=== PATIENT | female | born 2000 | race Caucasian/White ===

== ENCOUNTER 2021-11-22 10:15 | Observation (INO) | payer OTHER, SELFPAY ==
--- NOTE | ~2021-11-22 | XR_ITS ---
XR chest 2V DATE: 11/22/2021 13:19 INDICATION: Increased venous pulsatility on the right upper quadrant ultrasound TECHNIQUE: AP and lateral views COMPARISON: None FINDINGS: Normal heart size. No hilar or mediastinal enlargement. No pulmonary infiltrate or consolid ation, pleural effusion or pulmonary vascular congestion or pneumothorax. IMPRESSION: No active cardiopulmonary disease Reviewed, dictated and finalized at location B.
--- NOTE | ~2021-11-22 | US_ITS ---
EXAMINATION: US abdomen limited DATE: 11/22/2021 12:31 INDICATION: Elevated liver function tests. Nausea and vomiting. TECHNIQUE: Multiple grayscale and Doppler ultrasound images of the abdomen were obtained. COMPARISON: None FINDINGS: The pancreatic head and body are normal in appearance. The pancreatic tail is not visualized. Visual ized proximal to mid abdominal aorta is normal. Liver has normal echogenicity and contour, with a smo oth surface. Focal hyperechoic hepatic steatosis along the ligamentum teres. No other hepatic lesions identified. No intrahepatic biliary duct dilation suspected. Portal venous flow was seen in the hepa topetal, normal direction. There is increased portal vein pulsatility which can be seen with tricuspi d regurgitation, right heart failure or cirrhosis. Visualized proximal inferior vena cava is normal. The gallbladder is normal in appearance. There is no cholelithiasis. The common bile duct measures 4 mm, which is normal. Sonographic Avina sign was reported as negative by the petroleum refining equipment operator. IMPRESSION: 1. Increased portal venous pulsatility which can be seen with tricuspid regurgitation, heart failure, other cause of elevated right heart pressures and cirrhosis although the liver appears normal with n o surface nodularity. Reviewed, dictated and finalized at location A. IMPRESSION: 1. Increased portal venous pulsatility which can be seen with tricuspid regurgi tation, heart failure, other cause of elevated right heart pressures and cirrho sis although the liver appears normal with no surface nodularity.
[2021-11-22 10:24] VITALS: BP 148/91; PULSE 71; RESP 19; TEMP 37; O2SAT 100
[2021-11-22 10:43] LABS: Basophils Absolute Auto 0.1 K/mm3 (0.0-0.1); Basophils Percent Auto 0.5 % (0.2-1.2); Eosinophils Percent Auto 0.1 % (0-4.4); Hematocrit 42.7 % (37.0-47.0); Hemoglobin 13.9 g/dL (12.0-15.0); Immature Granulocyte Absolute 0.05 K/mm3 (0.00-0.031); Immature Granulocyte Percent A 0.5 % (0-0.5); Lymphocytes Absolute Auto 2.87 K/mm3 (0.9-3.2); Lymphocytes Percent Auto 30.9 % (18.3-44.2); Mean Corpuscular HGB Conc 32.6 g/dl (32-36); Mean Corpuscular Hemoglobin 29.9 pg (26-34); Mean Corpuscular Volume 91.8 fl (80-100); Mean Platelet Volume 10.8 fl (7.4-10.4); Monocytes Percent Auto 10.7 % (2.6-8.5); Neutrophils Absolute Auto 5.3 K/mm3 (1.3-6.7); Neutrophils Percent Auto 57.3 % (45.5-73.1); Platelet Count Result 286 k/mm3 (150-375); Red Blood Count 4.65 M/mm3 (4.2-5.4); Red Cell Distribution Width 13.9 % (11.5-14.5); White Blood Count 9.3 K/mm3 (4.5-10.0)
[2021-11-22 10:53] LABS: Alanine Aminotransferase 54 U/L (6-35); Albumin Level 4.5 g/dL (3.5-5.1); Alkaline Phosphatase 104 U/L (38-126); Anion Gap 12 mmol/L (8-16); Aspartate Amino Transferase 74 U/L (14-36); Bilirubin,Total 0.4 mg/dL (0.2-1.3); Blood Urea Nitrogen 5 mg/dL (7-17); Calcium 9.1 mg/dL (8.4-10.2); Carbon Dioxide 23 mmol/L (22-30); Chloride 104 mmol/L (98-107); Estimated CRCL calculation 156 ml/min; Estimated Glomerular Filt Rate > 60; Glucose 103 mg/dL (65-110); Lipase 69 U/L (23-300); Potassium 3.2 mmol/L (3.4-5.0); Sodium 139 mmol/L (137-145)
[2021-11-22 10:57] LABS: Atypical Lymphocytes Present; Platelet Estimate Adequate (Adequate)
--- NOTE | 2021-11-22 11:25 | ED.NAVMDI ---
HPI - Nausea/Vomiting/Diarrhea General Chief complaint: Nausea/Vomiting/Diarrhea Stated complaint: dizzy & vomit x 5 days, [employer] [employer] Time Seen by Provider: 11/22/21 11:15 History of Present Illness HPI Narrative: Patient is a 20-year-old transgender female here for evaluation of nausea vomiting and diffuse abdominal pain x 10 days. Patient states that she has been feeling generally weak and fatigued in addition to the her chief complaints. she has been evaluated at [facility] for these complaints and has reportedly had a CT scan that was normal. Despite iv fluids and medications she continues to vomit at home and she presents today due to increased fatigue and nausea and vomiting. Additionally notes shortness of breath, but denies chest pain, leg swelling, fevers, chills, diarrhea or constipation. Denies alcohol use or marijuana use. Not currently on hormone replacement therapy. Related Data Home Medications Medication Instructions Recorded Confirmed amoxicillin 500 mg capsule cap 11/22/21 meclizine 25 mg tablet tablet 11/22/21 ondansetron HCl 4 mg tablet tablet 11/22/21 Allergies Allergy/AdvReac Type Severity Reaction Status Date / Time aspirin Allergy Unknown Verified 11/22/21 11:40 Review of Systems Review of Systems: Gen: Reports fatigue and dizziness Eyes: Denies eye pain or visual change ENT: Denies congestion Respiratory: Denies shortness of breath or cough CV: Denies chest pain or palpitations GI: Reports abdominal pain nausea, emesis. no diarrhea denies burning, urgency, frequency or hematuria Musculoskeletal: Denies back pain or muscle pain Neuro: Denies numbness, tingling, weakness or focal weakness Skin: Denies rash Except as documented, all other systems reviewed and negative [facility] Social History Social History Smoking status: Current every day smoker Alcohol intake: current Drinks per week: 4 Substance use: current Substance use type: marijuana Last use: 5-7 days Gender identity (if verbalized by the patient): Transgender Female Spiritual care concerns: No Exam Narrative: APPEARANCE: Uncomfortable appearing Head: Normocephalic and atraumatic. EYES: PERRLA/EOMI, conjunctivae clear NOSE: No nasal drainage EARS: External ear normal in appearance THROAT: Oropharynx is clear. Mucous membranes are moist. NECK: Supple. No adenopathy, no masses. RESPIRATORY: Airway patent, respirations nonlabored. Clear to auscultation bilaterally, no rales, rhonchi, wheezing. CARDIOVASCULAR: Regular rate and rhythm without murmurs, rubs, or gallops. ABDOMINAL: Tender to palpation in upper abdomen. Normoactive bowel sounds. Soft, nontender, nondistended. No rebound tenderness or guarding. MUSCULOSKELETAL: Extremities are warm and well-perfused. Moves all extremities well. No edema. NEURO: Normal speech. No focal neurologic deficits. SKIN: Skin is warm and dry. No rashes. PSYCHIATRIC: Normal affect/mood. Course Vital Signs Vital signs: Vital Signs Temperature 98.6 F 11/22/21 10:24 Pulse Rate 71 11/22/21 10:24 Respiratory Rate 19 11/22/21 10:24 Blood Pressure 148/91 H 11/22/21 10:24 Pulse Oximetry 100 11/22/21 10:24 Oxygen Delivery Room Air 11/22/21 10:24 Temperature 97.8 F 11/22/21 17:33 Pulse Rate 75 11/22/21 17:33 Respiratory Rate 20 11/22/21 17:33 Blood Pressure 121/98 H 11/22/21 17:33 Pulse Oximetry 100 11/22/21 17:33 Oxygen Delivery Room Air 11/22/21 10:24 MDM - Nausea/Vomiting/Diarrhea MDM Narrative Medical decision making narrative: 20-year-old female here for evaluation of weakness, fatigue, nausea, vomiting and generalized upper abdominal pain. Work-up significant for evidence of increased pulsatile venous flow to the liver, which may be suggestive of underlying heart failure or structural abnormality. Additionally, she appears dehydrated with 4+ ketones in the urine. Patient will likely need admission for echo an
[2021-11-22] MEDS: Please add drug allergy info to patient profile. 1 EACH XX (11:43)
[2021-11-22] MEDS: SODIUM CHLORIDE 0.9% IV 1,000 ML 999 ML IV CONT ×2 (11:45→14:35)
[2021-11-22] MEDS: ONDANSETRON INJ 4 MG/2 ML VIAL IV PUSH (11:45)
[2021-11-22 12:11] LABS: Add Urine Microscopic? YES; Appearance Urine Clear (Clear); Bilirubin Urine 2+ (Negative); Blood Urine 1+ (Negative); Color Urine Yellow (Yellow); Glucose Urine UA Negative (Negative); Ketones Urine 4+ mg/dL (Negative); Leukocyte Esterase Ur Negative LEU/UL (Negative); Nitrate Urine Negative (Negative); Protein Urine 2+ mg/dL (Negative); Specific Grav Ur >= 1.030 (1.001-1.035); Urobilinogen Urine 0.2 mg/dL (<2.0); pH Urine 5.5 (5.0-9.0)
[2021-11-22 12:15] LABS: Mucus Urine Heavy /lpf; Squamous Epithelial Cell Urine Rare /hpf (Few)
--- NOTE | 2021-11-22 13:23 | ECG_ITS ---
Measurements Intervals [place] Rate: 78 P: 62 CA: 148 QRS: 53 QRSD: 90 T: 17 QT: 405 QTc: 464 Interpretive Statements SINUS RHYTHM NORMAL ELECTROCARDIOGRAM NO PREVIOUS ECG AVAILABLE FOR COMPARISON Electronically Signed On 11-22-2021 15:56:46 CDT by Bobby Alexis M.D.
[2021-11-22 13:27] LABS: NT Pro B Type Natriuretic Pept 118 pg/mL (5-100)
[2021-11-22] MEDS: METOCLOPRAMIDE HCL INJ 10 MG/2 ML VIAL IV PUSH (14:36)
[2021-11-22] MEDS: diphenhydrAMINE HCl INJ 50 MG/ML VIAL 12.5 MG IV PUSH (14:40)
[2021-11-22 14:50] LABS: Monoscreen Negative (Negative); Negative Monotest Control Negative (Negative); Positive Monotest Control Positive (Positive)
[2021-11-22 16:05] LABS: INR 1.1
[2021-11-22 16:09] VITALS: BP 127/72; PULSE 74; RESP 18; O2SAT 99
[2021-11-22 16:43] LABS: SARS-CoV-2 RNA PCR Negative
[2021-11-22 16:47] LABS: Hepatitis B Surface Antigen Negative (Negative)
[2021-11-22 16:54] LABS: HAV RESULT Negative (Negative); Hepatitis B Core IgM Result Negative (Negative)
[2021-11-22] MEDS: SODIUM CHLORIDE 0.9% IV 1,000 ML 100 ML IV CONT (17:01)
[2021-11-22 17:04] LABS: Hepatitis C Virus Antibody Negative (Negative)
[2021-11-22] MEDS: KCL 20 MEQ/SW 100 ML 100 ML 50 MEQ IVPB (17:09)
[2021-11-22 17:33] VITALS: BP 121/98; PULSE 75; RESP 20; TEMP 36.6; O2SAT 100
--- NOTE | 2021-11-22 17:33 | PC.NURSE ---
This patient, Praneeth Lake, was admitted to Medical Room 249-01. Patient/family oriented to hospital policies and general routines including ID bracelet, bed and alarms, visiting hours, pain management, procedures, bathroom and other care routines, personal items, smoking policy, room service/diet, and visiting hours. Information on how to activate the Rapid Response Team has been discussed. Patient/Family are encouraged to report perceived risks to care and to ask questions if they do not understand what they are told or what they should do.
[2021-11-22] MEDS: PROCHLORPERAZINE EDISYLATE 10 MG/2 ML VIAL IV PUSH (18:30)
[2021-11-22] MEDS: PROMETHAZINE HCL 25 MG/ML AMPUL 12.5 MG IV PUSH (19:28)
--- NOTE | 2021-11-22 19:29 | PM.IMHP ---
H&P: HPI History of Present Illness Date/Time: Patient was placed observation status for expected length of stay less than 23 hours for management, will plan to re-evaluate tomorrow for improvement. 11/22/21 19:29 Chief Complaint: Nausea/vomiting Narrative: Ms. Lake is a 20-year-old nonbinary person who presented emergency room with complaints of nausea and vomiting. Patient states that she has had multiple episodes of nausea vomiting has been seen at [facility] in [place] as well as at [facility] and has been told that there is no etiology for this nausea vomiting. Patient states that she was diagnosed with pancreatitis approximately 1-2 years ago, but has been told since then there is no evidence of pancreatitis. Patient denies any fever chills. Patient states that she was recently diagnosed with strep throat and has not been able to take all of her antibiotics. Patient denies any fever or chills. Patient denies any sore throat. Patient denies any lymphadenopathy. Upon evaluation emergency room patient underwent abdominal ultrasound Increased portal venous pulsatility which can be seen with tricuspid regurgitation, heart failure, other cause of elevated right heart pressures and cirrhosis although the liver appears normal with no surface nodularity. Patient is not wanting to answer all questions at this time because she states that she is too nauseous, but has not vomited while in the emergency room. Patient is is not wanting to answer all questions at this time because she states she is nauseous and does not feel like answer questions. Review of Systems Review of Systems: A 12 point review of systems was completed patient all pertinent positive and negative per HPI the remainder are unremarkable. [facility] Past Medical History Medical History (Updated 11/22/21 @ 19:38 by Giselle Combs APRN) Nausea & vomiting Social History Social History Smoking status: Current every day smoker Alcohol intake: current Drinks per week: 4 Substance use: current Substance use type: marijuana Last use: 5-7 days Gender identity (if verbalized by the patient): Transgender Female Spiritual care concerns: No Meds Home Medications and Allergies Home Medications Medication Instructions Recorded Confirmed Type amoxicillin 500 mg capsule cap 11/22/21 History meclizine 25 mg tablet tablet 11/22/21 History ondansetron HCl 4 mg tablet tablet 11/22/21 History Allergies Allergy/AdvReac Type Severity Reaction Status Date / Time aspirin Allergy Unknown Verified 11/22/21 11:40 Vital Signs Vital Signs - 24 hr 11/22/21 10:24 11/22/21 16:09 11/22/21 17:33 Temperature 37.0 C 36.6 C Pulse Rate 71 74 75 Respiratory Rate 19 18 20 Blood Pressure 148/91 H 127/72 121/98 H Pulse Oximetry 100 99 100 Oxygen Delivery Room Air Exam Narrative: Constitutional: Patient is well-nourished in no acute distress. Patient is alert and oriented x3 HEENT: Moist mucous membranes. No scleral icterus. No lymphadenopathy. Neck: No carotid bruits noted no JVD noted Lungs: Lung sounds are clear to auscultation bilaterally. No accessory muscle use. No rhonchi, rales, or wheezes noted. Cardiovascular: Apical pulse is regular rate and rhythm. S1-S2 noted, no S3 or S4 noted. No gallops, murmurs, or rubs noted. Abdomen: Soft, round, and nontender. No palpable masses. Extremities: No edema. Nontender. Skin: No rashes or lesions. Warm and dry. Skin is intact. Neurological: No focal neurological deficits. Cranial nerves II-XII grossly intact. Psychiatric: Patient not being cooperative at this time and flailing in the bed stating that she is too nauseous to answer questions. H&P: Results Labs Labs: Short CBC 11/22/21 Range/Units 10:34 WBC 9.3 (4.5-10.0) K/mm3 Hgb 13.9 (12.0-15.0) g/dL Hct 42.7 (37.0-47.0) % Plt Count 286 (150-375) k/mm3 [facility] 11/22/21 10:34 Sodium 139 Pot
[2021-11-22 22:00] VITALS: BP 132/74; PULSE 75; RESP 22; TEMP 36.7; O2SAT 100
[2021-11-23] MEDS: PROMETHAZINE HCL 25 MG/ML AMPUL 12.5 MG IV PUSH ×2 (01:35→16:31)
[2021-11-23] MEDS: SODIUM CHLORIDE 0.9% IV 1,000 ML 100 ML IV CONT ×2 (03:02→19:57)
[2021-11-23 06:00] VITALS: BP 129/67; PULSE 65; RESP 21; TEMP 36.4; O2SAT 100
--- NOTE | 2021-11-23 06:00 | ECHO_ITS ---
Patient Info Name: Praneeth Lake Age: 20 years : 2000 Gender: Female Ht: 72 in Wt: 256 lbs BSA: 2.47 m2 HR: 63 bpm BP: 132 / 74 mmHg Heart Rhythm: Sinus Rhythm Technical Quality: Fair Exam Date: 11/23/2021 9:13 AM Exam Location: [facility] Pulmonary Patient Status: Outpatient Admit Date: 11/22/2021 Staff Ordering Physician: Megan Reyes PA-C [employer] Operator: Ale Fleming RDCS Attending Provider: Khadar Padgett MD Referring Physician: Amy MENDES; Exam Type: CA echo doppler color flow Study Info Indications - increased liver pulsatility Complete two-dimensional, color flow and Doppler transthoracic echocardiogram is performed. Summary 1. Complete two-dimensional, color flow and Doppler transthoracic echocardiogram is performed. 2. Normal left ventricular size and thickness with good contractility of all segments. Ejection fraction 65%. Normal diastolic function. 3. Left atrial chamber dimension is mildly enlarged. 4. Mild pulmonary hypertension, estimated pulmonary arterial systolic pressure is 44 mmHg. 5. Dilated inferior vena cava with >50% collapse upon inspiration consistent with elevated right atrial pressure, 15 mmHg. 6. Mildly increased velocity to of across the pulmonic valve, 1.5 m/sec, with no significant stenosis. 7. Normal sinus rhythm. Left Ventricle Left ventricular chamber dimension is normal. Left ventricular systolic function is normal, estimated at Empty. There is no increased left ventricular wall thickness. Left ventricular septal wall motion is normal. The left ventricular diastolic function is normal. Right Ventricle Right ventricular chamber dimension is normal. Right ventricular systolic function is normal. Left Atria Left atrial chamber dimension is mildly enlarged. Right Atria Right atrial chamber dimension is normal. Aortic Valve The aortic valve is trileaflet. There is no aortic valve sclerosis. There is no aortic valve stenosis. There is no aortic valve regurgitation. Pulmonic Valve The pulmonic valve is normal. There is no pulmonic valve stenosis. There is trace pulmonic regurgitation. Mitral Valve The mitral valve has normal leaflets. There is no mitral valve stenosis. There is trace mitral valve regurgitation. Tricuspid Valve The tricuspid valve leaflets are normal. There is no significant tricuspid valve stenosis. There is trace tricuspid valve regurgitation. Mild pulmonary hypertension, estimated pulmonary arterial systolic pressure is 44 mmHg. Pericardium/Pleural The pericardium appears normal. There is no pericardial effusion. Inferior Vena Cava Dilated inferior vena cava with >50% collapse upon inspiration consistent with elevated right atrial pressure, 15 mmHg. Aorta The aortic root size at the sinus of Valsalva is normal. The prox ascending aorta size is normal. Left Ventricular Outflow Tract Name Value Normal LVOT 2D LVOT Diameter 2.0 cm LVOT Doppler LVOT Peak Gradient 9 mmHg LVOT Mean Gradient 4 mmHg LVOT VTI
--- NOTE | 2021-11-23 10:18 | PM.IMPN ---
Progress Note: A&P Assessment and Plan (1) Nausea & vomiting: Code(s): R11.2 - Nausea with vomiting, unspecified Status: Acute Assessment and Plan: Patient had abdominal ultrasound performed showed increased portal venous pulsatility which can be seen with tricuspid regurgitation, heart failure, or other cause of elevated right heart pressure. echo ordered GI consulted Could be side effect from her recent antibiotic treatment for strep throat Off amoxicillin currently Will get records from [facility] to conform positive strep throat rather than empiric treatment. Continue IV fluids May start clear liquids and advanced as tolerated if okay with GI and no further plans (2) Dehydration: Code(s): E86.0 - Dehydration Status: Acute Assessment and Plan: Will hydrate patient continue to monitor. Subjective Date/time seen: 11/23/21 10:18 Interval history: HPI: Ms. Lake is a 20-year-old nonbinary person who presented emergency room with complaints of nausea and vomiting.? Patient states that she has had multiple episodes of nausea vomiting has been seen at [facility] in [place] as well as at [facility] and has been told that there is no etiology for this nausea vomiting.? Patient states that she was diagnosed with pancreatitis approximately 1-2 years ago, but has been told since then there is no evidence of pancreatitis.? Patient denies any fever chills.? Patient states that she was recently diagnosed with strep throat and has not been able to take all of her antibiotics.? Patient denies any fever or chills.? Patient denies any sore throat.? Patient denies any lymphadenopathy.? Upon evaluation emergency room patient underwent abdominal ultrasound?Increased portal venous pulsatility which can be seen with tricuspid regurgitation, heart failure, other cause of elevated right heart pressures and cirrhosis although the liver appears normal with no surface nodularity.? Patient is not wanting to answer all questions at this time because she states that she is too nauseous, but has not vomited while in the emergency room.? Patient is is not wanting to answer all questions at this time because she states she is nauseous and does not feel like answer questions. 11/23/2021 feeling well. Has been sick off and on since a week now. Last alcohol intake was in [place] 10 days ago. no more nausea, no vomiting. denies any abdominal pain. Review of Systems Review of Systems: All systems reviewed & are unremarkable except as noted in HPI and below (hpi) Exam Narrative: Constitutional: Patient is well-nourished in no acute distress. Patient is alert and oriented x3 HEENT: Moist mucous membranes. No scleral icterus. No lymphadenopathy. Neck: No carotid bruits noted no JVD noted Lungs: Lung sounds are clear to auscultation bilaterally. No accessory muscle use. No rhonchi, rales, or wheezes noted. Cardiovascular: Apical pulse is regular rate and rhythm. S1-S2 noted, no S3 or S4 noted. No gallops, murmurs, or rubs noted. Abdomen: Soft, round, and nontender. No palpable masses. Extremities: No edema. Nontender. Skin: No rashes or lesions. Warm and dry. Skin is intact. Neurological: No focal neurological deficits. Cranial nerves II-XII grossly intact. Psychiatric: Patient With normal mood Objective Data Vital Signs Vital Signs: Vital Signs - 24 hr 11/22/21 10:24 11/22/21 16:09 11/22/21 17:33 Temperature 98.6 F 97.8 F Pulse Rate 71 74 75 Respiratory Rate 19 18 20 Blood Pressure 148/91 H 127/72 121/98 H Pulse Oximetry 100 99 100 Oxygen Delivery Room Air 11/22/21 22:00 11/23/21 06:00 11/23/21 08:00 Temperature 98.0 F 97.5 F L Pulse Rate 75 65 Respiratory Rate 22 H 21 H Blood Pressure 132/74 129/67 Pulse Oximetry 100 100 Oxygen Delivery Room Air Intake/Output Intake/Output: Intake & Output 11/20/21 11/21/21 11/22/21 11/23/21 23:59 23:59 23:59 23:59 Intake Total 200
[2021-11-23 11:20] LABS: Alanine Aminotransferase 44 U/L (6-35); Albumin Level 3.8 g/dL (3.5-5.1); Alkaline Phosphatase 87 U/L (38-126); Anion Gap 9 mmol/L (8-16); Aspartate Amino Transferase 57 U/L (14-36); Bilirubin,Total 0.4 mg/dL (0.2-1.3); Blood Urea Nitrogen 5 mg/dL (7-17); Calcium 8.5 mg/dL (8.4-10.2); Carbon Dioxide 22 mmol/L (22-30); Chloride 108 mmol/L (98-107); Estimated CRCL calculation 156 ml/min; Estimated Glomerular Filt Rate > 60; Glucose 75 mg/dL (65-110); Potassium 3.4 mmol/L (3.4-5.0); Sodium 139 mmol/L (137-145)
[2021-11-23 14:00] VITALS: BP 132/77; PULSE 76; RESP 18; TEMP 36.7; O2SAT 100
--- NOTE | 2021-11-23 14:39 | WPDGICN ---
Assessment and Plan Assessment and plan (1) Nausea & vomiting: Code(s): R11.2 - Nausea with vomiting, unspecified Status: Acute Assessment and Plan: intermittent patient says that already better and asking to go home advance diet and will do EGD tomorrow if he stays- check for esophagitis, celiac, pud, etc (2) Dehydration: Code(s): E86.0 - Dehydration Status: Acute Assessment and Plan: treated (3) Transaminasemia: Code(s): R74.01 - Elevation of levels of liver transaminase levels Status: Acute Assessment and Plan: repeat in am hepatitis negative (4) Abnormal liver ultrasound: Code(s): R93.2 - Abnormal findings on diagnostic imaging of liver and biliary tract Status: Acute Assessment and Plan: ? Increased portal venous pulsatility- no history of cirrhosis, also ? rt heart etiology but no report of dyspnea, etc I can do egd to check if evidence of PHG, primary to decide if further cardiac work up GI Consult Note Consult date/time: 11/23/21 14:39 Reason for consult: abdominal pain, nausea HPI: Praneeth Lake is a 20 year old female who is a transgender who presented emergency room with complaints of nausea and vomiting.?He has been in other hospitals for similar problem ([facility] in [place] as well as at [facility] and has been told that there is no etiology for this nausea vomiting).?He also was told last year that had pancreatitis but was not admitted to hospital (no records). He is here with worsening nausea and vomiting, also upper abdominal discomfort, also was recently diagnosed with strep throat and has not been able to take all of her antibiotics.?He had abdominal ultrasound?Increased portal venous pulsatility which can be seen with tricuspid regurgitation, heart failure, other cause of elevated right heart pressures and cirrhosis although the liver appears normal with no surface nodularity. Drinks alcohol but only on weekends, denies history of liver disease, transaminases mildly elevated. Hepatitis and covid negative. Review of Systems Review of Systems: Gen: Reports fatigue and dizziness Eyes: Denies eye pain or visual change ENT: Denies congestion Respiratory: Denies shortness of breath or cough CV: Denies chest pain or palpitations GI: Reports abdominal pain nausea, emesis. no diarrhea denies burning, urgency, frequency or hematuria Musculoskeletal: Denies back pain or muscle pain Neuro: Denies numbness, tingling, weakness or focal weakness Skin: Denies rash Except as documented, all other systems reviewed and negative [facility] Past Medical History Medical History (Updated 11/23/21 @ 14:43 by Gustavo Read MD) Abnormal liver ultrasound Nausea & vomiting Transaminasemia Social History Social History Smoking status: Current every day smoker Alcohol intake: current Drinks per week: 4 Substance use: current Substance use type: marijuana Last use: 5-7 days Gender identity (if verbalized by the patient): Transgender Female Spiritual care concerns: No Meds Home Medications and Allergies Home Medications Medication Instructions Recorded Confirmed Type amoxicillin 500 mg capsule cap 11/22/21 History meclizine 25 mg tablet tablet 11/22/21 History ondansetron HCl 4 mg tablet tablet 11/22/21 History Allergies Allergy/AdvReac Type Severity Reaction Status Date / Time aspirin Allergy Unknown Verified 11/22/21 11:40 Vital Signs Vital Signs - 24 hr 11/22/21 16:09 11/22/21 17:33 11/22/21 22:00 Temperature 97.8 F 98.0 F Pulse Rate 74 75 75 Respiratory Rate 18 20 22 H Blood Pressure 127/72 121/98 H 132/74 Pulse Oximetry 99 100 100 Oxygen Delivery 11/23/21 06:00 11/23/21 08:00 11/23/21 14:00 Temperature 97.5 F L 98.1 F Pulse Rate 65 76 Respiratory Rate 21 H 18 Blood Pressure 129/67 132/77 Pulse Oximetry 100 100 Oxygen Delivery Room Air Exam N
[2021-11-23 20:00] VITALS: PULSE 76; RESP 18; O2SAT 100
[2021-11-23 22:00] VITALS: BP 125/93; PULSE 68; RESP 20; TEMP 36.8; O2SAT 99
[2021-11-24 06:00] VITALS: BP 128/80; PULSE 80; RESP 21; TEMP 36.7; O2SAT 100; BMI 33.5
[2021-11-24] MEDS: MORPHINE SULFATE (*CRX) 2 MG/ML INJ IV PUSH (09:33)
[2021-11-24] MEDS: SODIUM CHLORIDE 0.9% IV 1,000 ML 100 ML IV CONT (09:42)
[2021-11-24 10:40] VITALS: BP 135/79; PULSE 80; RESP 20; TEMP 36.6; O2SAT 100
[2021-11-24] MEDS: LACTATED RINGERS 1,000 ML 150 ML IV CONT (10:43)
--- NOTE | 2021-11-24 10:50 | WPDANESEPPF ---
Anes - Initial Pre Proc Eval Procedure: Operation Date: 11/24/21 15:15 Proposed Procedures p Esophagogastroduodenoscopy - Gustavo Read MD Date/Time: 11/24/21 10:50 Surgeon: Khadar Padgett MD Pre Op Diagnosis: Weakness Patient Data Age: 20 Gender: F Height: 1.83 m Weight: 112 kg Last Vital Signs Temp 97.8 F 11/24/21 10:40 Pulse 80 11/24/21 10:40 Resp 20 11/24/21 10:40 BP 135/79 11/24/21 10:40 Pulse Ox 100 11/24/21 10:40 O2 Del Method Room Air 11/24/21 10:40 Allergies Allergy/AdvReac Type Severity Reaction Status Date / Time aspirin Allergy Unknown Verified 11/24/21 10:39 Home Medications Medication Instructions Recorded Confirmed Type meclizine 25 mg tablet 25 mg PO BID PRN Dizziness 11/22/21 11/23/21 History ondansetron HCl 4 mg tablet 4 mg PO QID PRN Nausea 11/22/21 11/23/21 History Laboratory Tests 11/23/21 10:43 Sodium 139 mmol/L mmol/L (137-145) Potassium 3.4 mmol/L mmol/L (3.4-5.0) Chloride 108 mmol/L H mmol/L (98-107) Carbon Dioxide 22 mmol/L mmol/L (22-30) Anion Gap 9 mmol/L mmol/L (8-16) BUN 5 mg/dL L mg/dL (7-17) Creatinine 0.70 mg/dL mg/dL (0.7-1.0) Estim Creat Clear Calc 156 ml/min ml/min Estimated GFR > 60 (59 - ) Glucose 75 mg/dL mg/dL (65-110) Calcium 8.5 mg/dL mg/dL (8.4-10.2) Total Bilirubin 0.4 mg/dL mg/dL (0.2-1.3) AST 57 U/L H U/L (14-36) ALT 44 U/L H U/L (6-35) Alkaline Phosphatase 87 U/L U/L (38-126) Total Protein 7.0 g/dL g/dL (6.3-8.2) Albumin 3.8 g/dL g/dL (3.5-5.1) Patient hx anesthesia problems: none Family hx anesthesia problems: none Results Review: All pre-operative results and documents have been reviewed as part of the pre-operative evaluation. [facility] Past Medical History Medical History (Updated 11/23/21 @ 14:43 by Gustavo Read MD) Abnormal liver ultrasound Nausea & vomiting Transaminasemia Social History Social History Smoking status: Current every day smoker Alcohol intake: current Drinks per week: 4 Substance use: current Substance use type: marijuana Last use: 5-7 days Gender identity (if verbalized by the patient): Transgender Female Spiritual care concerns: No Anes - Eval Final PreProcedure Day of Procedure 11/24/21 10:50 Patient weight: obese Heart: regular rate and rhythm Lungs: clear to auscultation Airway: Mallampati scale class II Neurological: alert and oriented Last oral intake: >/= 8 hours ASA classification: II Emergent: no Anesthetic plan: proceed Anesthesia type and monitoring: general GIVS and standard monitoring Results Review: All pre-operative results and documents have been reviewed as part of the pre-operative evaluation. Informed Consent: The patient's anesthetic plan and its attendant risks and benefits were discussed with the patient/family/POA. Questions were solicited and answers provided to the satisfaction of the patient/family/POA.
[2021-11-24] MEDS: ONDANSETRON INJ 4 MG/2 ML VIAL IV PUSH (11:19)
[2021-11-24 11:45] VITALS: BP 106/57; PULSE 76; RESP 23; O2SAT 100
[2021-11-24 11:55] VITALS: BP 100/79; PULSE 69; RESP 17; O2SAT 100
[2021-11-24 12:05] VITALS: BP 129/78; PULSE 69; RESP 18; O2SAT 100
[2021-11-24 13:34] VITALS: BP 142/80; PULSE 62; RESP 16; TEMP 36.6; O2SAT 99
--- NOTE | 2021-11-24 17:01 | PM.DS ---
DS: Admitting Diagnosis Discharge Date 11/24/2021 Admitting Diagnosis nausea vomiting DS: Discharge Diagnosis Discharge Diagnosis (1) Nausea & vomiting: Code(s): R11.2 - Nausea with vomiting, unspecified Status: Acute Assessment and Plan: Patient had abdominal ultrasound performed showed increased portal venous pulsatility which can be seen with tricuspid regurgitation, heart failure, or other cause of elevated right heart pressure. echo ordered which was reviewed and did had any significant abnormalities. GI consulted Has continued to have nausea vomiting. This could be related to side effect from a her recent antibiotic treatment for strep throat. Strep throat swab was done during hospital stay and came back negative. Her amoxicillin was discontinued because of ongoing nausea vomiting. She was treated with IV fluids. Underwent EGD on 11/24/2021 which revealed esophagitis with whitish patches. Query fungal infection. Biopsies were taken and awaiting biopsy report. She will follow up with GI as an outpatient basis and will be treated with fluconazole if the biopsy comes back positive. She was advised to stay on soft diet and advance slowly. Will also add Carafate for pain related to her esophagitis. She opted to go home and continue management as an outpatient basis with closely with her PCP. (2) Dehydration: Code(s): E86.0 - Dehydration Status: Acute Assessment and Plan: Will hydrate patient continue to monitor. DS: Summary Hospital Course Hospital Course: See above Time Spent with Patient Time attestation: Total time spent providing and/or coordinating discharge services: 45 minutes Exam Narrative: Constitutional: Patient is well-nourished in no acute distress. Patient is alert and oriented x3 HEENT: Moist mucous membranes. No scleral icterus. No lymphadenopathy. Neck: No carotid bruits noted no JVD noted Lungs: Lung sounds are clear to auscultation bilaterally. No accessory muscle use. No rhonchi, rales, or wheezes noted. Cardiovascular: Apical pulse is regular rate and rhythm. S1-S2 noted, no S3 or S4 noted. No gallops, murmurs, or rubs noted. Abdomen: Soft, round, and nontender. No palpable masses. Extremities: No edema. Nontender. Skin: No rashes or lesions. Warm and dry. Skin is intact. Neurological: No focal neurological deficits. Cranial nerves II-XII grossly intact. Psychiatric: Patient With normal mood DS: Data Data Completed and Pending Completed studies during hospitalization: Exam Type: ? ? CA echo doppler color flow Study Info Indications ?? ? - increased liver pulsatility Complete two-dimensional, color flow and Doppler transthoracic echocardiogram is performed. Account #: ? ? [id number] Summary ? 1. Complete two-dimensional, color flow and Doppler transthoracic echocardiogram is performed. ? 2. Normal left ventricular size and thickness with good? contractility of all segments.? Ejection fraction 65%.? Normal diastolic function. ? 3. Left atrial chamber dimension is mildly enlarged. ? 4. Mild pulmonary hypertension, estimated pulmonary arterial systolic pressure is 44 mmHg. ? 5. Dilated inferior vena cava with >50% collapse upon inspiration consistent with elevated right atrial pressure, 15 mmHg. ? 6. Mildly increased velocity to of across the pulmonic valve, 1.5 m/sec, with no significant stenosis. ? 7. Normal sinus rhythm. Left Ventricle ? Left ventricular chamber dimension is normal. ? Left ventricular systolic function is normal, estimated at Empty. ? There is no increased left ventricular wall thickness. ? Left ventricular septal wall motion is normal. ? The left ventricular diastolic function is normal. Right Ventricle ? Right ventricular chamber dimension is normal. ? Right ventricular systolic function is normal. Left Atria ? Left atrial chamber dimension is mildly enlarged. Right Atria ? Right atrial suzy
== END 2021-11-24 18:15 | disposition home or self-care (01) ==
LOC: ANHED 11:15 → ANH2MED 17:59
PROVIDERS: Internal Medicine Gastroenterology; Physician Assistant; Admitting Provider Internal Medicine; Emergency Provider Emergency Medicine; Visit Provider Internal Medicine
PROC: 0DJ08ZZ Inspection of Upper Intestinal Tract, Via Natural or Artificial Opening Endoscopic (ICD-10-PCS; CPT 43235; principal; 2021-11-24 15:15)
DX: R11.2 Nausea with vomiting, unspecified (principal); R10.9 Unspecified abdominal pain; K20.90 Esophagitis, unspecified without bleeding; E86.0 Dehydration; I27.20 Pulmonary hypertension, unspecified; R93.1 Abnormal findings on diagnostic imaging of heart and coronary circulation; K29.50 Unspecified chronic gastritis without bleeding; R74.01 Elevation of levels of liver transaminase levels; F17.210 Nicotine dependence, cigarettes, uncomplicated; Z20.822 Contact with and (suspected) exposure to COVID-19; F12.90 Cannabis use, unspecified, uncomplicated
CPT/HCPCS: 43239; 36415; 51701; 71046; 76705; 80053; 80074; 81001; 83690; 83880; 85025; 85610; 86308; 87081; 88305; 88312; 88342; 93005; 93306; 96361; 96365; 96374; 96375; 96376; 99285; C9803; G0378; G0379; J0456; J0780; J1200; J2001; J2270; J2405; J2550; J2704; J2765; J3480; J7030; J7120; U0003; U0005